=== PATIENT | male | born 1985 | race Hispanic/Latino ===

== ENCOUNTER 2023-01-30 10:57 | Emergency (ER) | payer BC, MEDICAID ==
[~2023-01-30] VITALS: Ht 185.4 cm; Wt 179.2 kg
[2023-01-30 11:26] LABS: APPEARANCE,URINE CLEAR (CLEAR); BILIRUBIN,URINE NEGATIVE (NEGATIVE); COLOR,URINE LIGHT-YELLOW (YELLOW); GLUCOSE, URINE (UA) NEGATIVE (NEGATIVE); KETONES,URINE NEGATIVE (NEGATIVE); LEUKOCYTE ESTERASE ,URINE NEGATIVE Leu/uL (NEGATIVE); NITRATE,URINE NEGATIVE (NEGATIVE); OCCULT BLOOD,URINE NEGATIVE (NEGATIVE); PH,URINE 6.5 (5.0-8.0); PROTEIN,URINE 10 mg/dL (NEGATIVE); UROBILINOGEN,URINE 0.2 mg/dL (0.2-1.0)
[2023-01-30 11:33] LABS: BASOPHILS % (AUTO) 0.8 % (0.0-5.0); EOSINOPHILS % (AUTO) 1.6 % (0.0-8.0); HEMATOCRIT 41.8 % (42-54); LYMPHOCYTES % (AUTO) 24.6 % (21.0-51.0); MEAN CORPUSCULAR HEMOGLOBIN 25.6 pg (27.0-33.0); MEAN CORPUSCULAR HGB CONC 31.8 g/dL (32.0-36.0); MEAN CORPUSCULAR VOLUME 80.4 fL (79-99); MONOCYTES % (AUTO) 6.8 % (3.0-13.0); NEUTROPHILS % (AUTO) 65.8 % (40.0-77.0); PLATELET COUNT (AUTO) 341 K/uL (130-400); RED CELL DISTRIBUTION WIDTH 13.8 % (11.0-15.5)
[2023-01-30 11:50] LABS: CREATININE 0.8 mg/dL (0.5-1.5); POTASSIUM 4.2 mmol/L (3.5-5.1)
[2023-01-30 11:56] LABS: ALBUMIN 3.7 g/dL (3.5-5.0); TOTAL PROTEIN, SERUM 8.3 g/dL (6.0-8.3)
[2023-01-30] MEDS ORDERED: IOHEXOL-350 75 ML VIAL IV ONE (12:20)
[2023-01-30 12:22] LABS: MUCUS,URINE RARE LPF (None Seen); RBC,URINE 0-1 /HPF (0-1); SQUAMOUS EPITHELIAL CELL,UR RARE /HPF (0-2); WBC,URINE 0-1 /HPF (0-1)
[2023-01-30] MEDS ORDERED: LACTATED RINGERS 1000ML 1,000 ML IV ONE (12:30)
[2023-01-30] MEDS ORDERED: ONDANSETRON 4MG INJ IVP ONE (12:30)
[2023-01-30] MEDS ORDERED: MORPHINE 4 MG SYG IVP ONE (12:30)
[2023-01-30] MEDS ORDERED: LIDOCAINE HCL 2% VISCOUS 15 ML UDCUP PO ONE (15:00)
[2023-01-30 15:39] VITALS: BP 162/90; PULSE 74; RESP 18; O2SAT 96
[2023-01-30] MEDS ORDERED: MAG/ALUM/SIMETH 30 ML UDCUP PO ONE (16:00)
[2023-01-30] MEDS ORDERED: PANT40GR PO (16:35)
== END 2023-01-30 16:44 | disposition home or self-care (01) ==
LOC: EDH 10:57
DX: R10.13 Epigastric pain (principal); E11.9 Type 2 diabetes mellitus without complications; E66.9 Obesity, unspecified; I10 Essential (primary) hypertension
CPT/HCPCS: 99285; 74177; 96374; 96361; 96375; 84478; 84484; 80053; 83690; 85025; 81001; 36415; 93005; J7120; J2405; J2270; Q9967

== ENCOUNTER 2023-04-24 03:53 | Emergency (ER) | payer MEDICAID ==
[~2023-04-24] VITALS: Ht 185.4 cm; Wt 176.9 kg
[~2023-04-24 03:53] MED LIST: PANT40GR PO
[2023-04-24] MEDS ORDERED: LACTATED RINGERS 1000ML 1,000 ML IV ONE (04:00)
[2023-04-24] MEDS ORDERED: ONDANSETRON 4MG INJ IVP ONE (04:00)
[2023-04-24 04:30] LABS: BASOPHILS # (AUTO) 0.02 K/uL (0.00-0.20); BASOPHILS % (AUTO) 0.2 % (0.0-5.0); EOSINOPHILS # (AUTO) 0.03 K/uL (0.00-0.70); EOSINOPHILS % (AUTO) 0.4 % (0.0-8.0); HEMATOCRIT 41.6 % (42-54); IMMATURE GRANULOCYTE ABSOLUTE 0.04 K/uL (0-1); LYMPHOCYTES # (AUTO) 0.6 K/uL (1.0-4.8); LYMPHOCYTES % (AUTO) 6.9 % (21.0-51.0); MEAN CORPUSCULAR VOLUME 80.5 fL (79-99); MONOCYTES # (AUTO) 0.6 K/uL (0.1-1.0); NEUTROPHILS # (AUTO) 6.8 K/uL (1.8-7.7); PLATELET COUNT (AUTO) 285 K/uL (130-400); RED BLOOD CELL COUNT(AUTO) 5.17 MIL/uL (4.50-6.20); RED CELL DISTRIBUTION WIDTH 14.1 % (11.0-15.5)
[2023-04-24 04:42] LABS: CREATININE 0.9 mg/dL (0.5-1.5); POTASSIUM 3.8 mmol/L (3.5-5.1)
[2023-04-24 04:44] LABS: SARS-CoV-2, RNA, NAAT NEGATIVE SARS CoV-2 (NEGATIVE)
[2023-04-24 04:45] LABS: INFLUENZA TYPE A Negative For Type A (NEGATIVE); INFLUENZA TYPE B Negative For Type B (NEGATIVE)
[2023-04-24 04:47] LABS: ALBUMIN 3.4 g/dL (3.5-5.0); BILIRUBIN,TOTAL 0.5 mg/dL (0.2-1.0); TOTAL PROTEIN, SERUM 8.1 g/dL (6.0-8.3)
[2023-04-24] MEDS ORDERED: MORPHINE 2 MG SYG IVP ONE (05:00)
[2023-04-24] MEDS ORDERED: DIPHENOXYLATE HCL/ATROPINE 2.5/0.025 MG TAB PO ONE (05:00)
[2023-04-24] MEDS ORDERED: DiphenhydrAMINE HCL 50 MG/ML VIAL ONE (05:31)
[2023-04-24] MEDS ORDERED: SOLU-MEDROL 125MG VIAL ONE (05:32)
[2023-04-24] MEDS ORDERED: IOHEXOL 350 MG/ML 100ML INFUS..BTL IV ONE (05:41)
[2023-04-24] MEDS ORDERED: SOLU-MEDROL 125MG VIAL IVP ONE (06:00)
[2023-04-24] MEDS ORDERED: DiphenhydrAMINE HCL 50 MG/ML VIAL IV ONE (06:00)
[2023-04-24] MEDS ORDERED: DIPH1TAB PO (06:39)
[2023-04-24] MEDS ORDERED: ONDA4TAB10 PO (06:39)
[2023-04-24] MEDS ORDERED: DICY20TA2 PO (06:39)
[2023-04-24 06:49] VITALS: BP 148/76; PULSE 88; RESP 18; O2SAT 98
== END 2023-04-24 07:11 | disposition home or self-care (01) ==
LOC: EDH 03:53
DX: K52.9 Noninfective gastroenteritis and colitis, unspecified (principal); E11.9 Type 2 diabetes mellitus without complications; E66.9 Obesity, unspecified; I10 Essential (primary) hypertension; Z79.899 Other long term (current) drug therapy; Z68.43 Body mass index [BMI] 50.0-59.9, adult; Z20.822 Contact with and (suspected) exposure to COVID-19
CPT/HCPCS: 99285; 74177; 96374; 96375; 76705; 96361; 87635; 80053; 83690; 85025; 87804 ×2; 36415; C9803; J7120; J1200; J2270; J2930; J2405; Q9967

== ENCOUNTER 2024-11-30 11:25 | Emergency (ER) | payer MEDICAID, OTHER ==
[~2024-11-30] VITALS: Ht 185.4 cm; Wt 176.9 kg
[~2024-11-30 11:25] MED LIST changes: +DICY20TA2 PO; +DIPH1TAB PO; +ONDA-243 PO
[2024-11-30 11:55] LABS: RAPID GROUP A STREP negative (NEGATIVE)
[2024-11-30 12:05] LABS: SARS-CoV-2, RNA, NAAT NEGATIVE SARS CoV-2 (NEGATIVE)
[2024-11-30 12:06] LABS: INFLUENZA TYPE A Negative For Type A (NEGATIVE); INFLUENZA TYPE B Negative For Type B (NEGATIVE)
[2024-11-30] MEDS: BENZONATATE 100 MG CAPSULE PO STA (13:27)
--- NOTE | 2024-11-30 13:37 | EKG ---
[facility] Test Date: 2024-11-30 Test Time: 13:33:36 Pat Name: MARSHALL HOOVER Department: ED Room: Gender: M C D Still Operator: 08 : 1985 Requested By: THEA LAMB Order Number: [id number] Reading MD: Manas Morgan Measurements Intervals [place] Rate: 73 P: 45 ME: 176 QRS: 47 QRSD: 96 T: 160 QT: 377 QTc: 416 Interpretive Statements Sinus rhythm Nonspecific T abnormalities, lateral leads Compared to ECG 01/30/2023 14:56:22 No significant changes Electronically Signed On 12-01-2024 17:32:32 CDT by Manas Morgan Please click the below link to view image of tracing.
--- NOTE | 2024-11-30 14:02 | HMCIMG ---
Exam Type: CHEST 1VW Clinical Information: cough Comparison: None Findings: The lungs are clear of infiltrates. The heart is normal in size. The bony and soft tissue structures of the chest are unremarkable. Impression: Clear lungs.
[2024-11-30 14:33] VITALS: BP 131/85; PULSE 80; RESP 18; TEMP 98.6; O2SAT 98
[2024-11-30] MEDS ORDERED: DEXT15LI31 PO (14:39)
[2024-11-30] MEDS ORDERED: KETO10TA2 PO (14:39)
--- NOTE | 2024-11-30 14:40 | ERN ---
ED Note History of Present Illness Stated Complaint: COUGH, CONGESTION Chief Complaint: Cough Time Seen by MD: 11:36 Time Seen by Midlevel: 11:40 Dictation: 39-year-old male coming in with complaints of cough later turned into chest pain when he coughs for three days. Patient states he also has generalized body malaise. Denies having any fever. Allergies: Coded Allergies: No Known Drug Allergies (Unverified Allergy, Unknown, 01/30/23) Uncoded Allergies: SEAFOOD (Allergy, Intermediate, "PUTS ME TO SLEEP", 09/10/13) Home Meds Active Scripts Dextromethorphan HBr (Tussin Cough) 15 Mg/5 Ml Liquid, 15 MG PO DAILY for 5 Days, #100 ML Prov:THEA LAMB [employer] 11/30/24 Ketorolac Tromethamine (Ketorolac Tromethamine) 10 Mg Tablet, 1 TAB PO Q6HPRN PRN for pain for 3 Days, #20 TAB 0 Refills Prov:THEA LAMB NP 11/30/24 Dicyclomine HCl (Bentyl) 20 Mg Tab, 20 MG PO TIDP PRN for PAIN, #30 TAB Prov:MATTY BROWN MD 04/24/23 Diphenoxylate HCl/Atropine (Lomotil Tablet) 2.5 Mg-0.025 Mg Tablet, 2 TAB PO TIDP PRN for DIARRHEA for 5 Days, #10 TAB 0 Refills Prov:MATTY BROWN MD 04/24/23 Ondansetron (Ondansetron Odt) 4 Mg Tab.rapdis, 4 MG PO TIDP PRN for VOMITING, #30 TAB Prov:MATTY BROWN MD 04/24/23 Pantoprazole Sodium (Pantoprazole Sodium) 40 Mg Granpkt.dr, 40 MG PO DAILY, #30 PACK Prov:ADDIE TELLES MD 01/30/23 Past Medical History Past Medical History: Diabetes-Type II, Hypertension Additional Past Medical Hx: OBESITY Surgical History: Other Surgical History Other: KNEE SURGERY Family History: HTN Social History: ETOH Review of System Dictation Constitutional: Negative for fever,chills, and weight loss Eyes: Negative for injury, pain,redness, and discharge ENT: Negative for injury,pain or swelling Cardiovascular: Negative for chest pain, palpitations, and edema Respiratory: Complaining of shortness a breath and cough Abdomen/GI: Negative for abdominal pain, nausea, vomiting, diarrhea, and constipation Back: Negative for injury and pain : Negative for injury, bleeding and discharge MS/Extremity: Negative for injury and deformity Skin: Negative for rash, and discoloration Neuro: Negative for headache, weakness, numbness, tingling, and seizure Psych: Negative for suicide ideation, homicidal ideation, and hallucinations Review of Systems: was completed Initial Vital Sign VS Vital Signs Date Time Temp Pulse Resp B/P (MAP) Pulse Ox O2 Delivery O2 Flow Rate FiO2 11/30/24 11:31 98.6 83 18 137/87 97 Room Air 0 11/30/24 14:33 21 Physical Exam Dictation General: awake, alert, NAD Head/Face: Normocephalic, atraumatic Eyes: PERRL, EOMI, vision at baseline ENT: oral cavity clear, TMs clear, no signs of infection Neck: Trachea midline, supple, no nuchal rigidity Cardiovascular: RRR, normal S1/S2, No MRGs, no JVD Respiratory: CTAB, no respiratory distress, No rales or wheezes Abdomen: Soft, non-tender, non-distended, normal bowel sounds, no guarding or rebound. Skin: Warm, dry, normal turgor, no rash MS/Extremity: Pulses equal, no cyanosis, neurovascular intact, FROM Neuro: COAx4, GCS 15, strength 5/5, CN 2-12 intact, normal cerebellar exam, normal gait, Psych: Normal behavior, mood, and affect normal Results (Laboratory/Radiology) Laboratory/Radiology Laboratory Tests Test 11/30/24 11:39 Influenza Type A Antigen Negative For Type A Influenza Type B Antigen Negative For Type B SARS-CoV-2, RNA, NAAT NEGATIVE SARS CoV-2 Group A Streptococcus Rapid negative (NEGATIVE) Labs Reviewed?: Yes X-RAY Comment: [place] [id number] [id number] IMAGING REPORT Signed PATIENT: MARSHALL HOOVER MR#: [id number] : 1985 SEX: M AGE: 39 LOCATION: [facility] ORDER [id number] STATUS: REG ER REPORT#: [id number] SERVICE 1310 REASON: cough ORDERING PHYSICIAN: THEA LAMB NP PROCEDURE: CXR1VW - CHEST 1VW Exam Type: CHEST 1VW Clinical Information: cough Comparison: None Findings: The lungs are clear of infiltrates. The heart is normal in size. The bony and soft tissue structures of the chest are unremarkable. Impression: Clear lungs. DICTATED BY: SADIQ BURRELL MD DATE: 11/30/24 1400 ELECTRONICALLY SIGNED BY: SADIQ BURRELL MD DATE: 11/30/24 1402 ED Course ED Course Orders Procedure Category Date Status Time Covid Rna Naat LAB 11/30/24 Complete 11:35 Rapid (Group A Strep) LAB 11/30/24 Complete 11:35 Influenza Type A & B, LAB 11/30/24 Complete Rapid 11:35 Chest 1vw RAD 11/30/24 Resulted 13:10 12 Lead Ekg Tracing- EKG 11/30/24 Complete Technical 13:10 Benzonatate 100 Mg PHA 11/30/24 Complete Capsule (Tessalon 100 13:10 Current Medications Medications (Trade) Dose Ordered Sig/Twin Route PRN Reason Start Time Stop Time Status Last Admin Dose Admin Benzonatate (Tessalon 100mg Caps) 200 mg ONCE STAT PO 11/30/24 13:10 11/30/24 13:12 DC 11/30/24 13:27 Vital Signs Date Time Temp Pulse Resp B/P (MAP) Pulse Ox O2 Delivery O2 Flow Rate FiO2 11/30/24 14:33 98.6 80 18 131/85 98 Room Air* 0 21 11/30/24 11:31 98.6 83 18 137/87 97 Room Air 0 Medical Decision Making MDM MDM: 39-year-old male coming in with complaints of cough later turned into chest pain when he coughs for three days. Patient states he also has generalized body malaise. Denies having any fever. Swabs are negative. X-ray does not show any pulmonary edema or pneumonia. EKGs not show any ST elevations or dysrhythmias. Educated patient more than likely this is viral syndrome, URI. Discussed that he is to follow up with PCP in 1-2 days and he can take [id number] for symptomatic control. Discussed patient with a red flag symptoms of when to return back to the ER, patient verbalized understanding, answered all questions. Differential diagnosis: COVID, influenza, strep, viral syndrome, URI, bronchitis Rationale: Tests considered and ordered secondary to shared decision making include: Previous outside records reviewed: Old ER visits. Risk of complication and/or morbidity or mortality of patient management: None Medications-Per medication reconciliation Need for hospitalization: Patient does not meet criteria for hospitalization. Need for emergency major/minor surgery: No There are no social concerns with this patient. Prescription drug management Prescriptions will include symptomatic care Patient's prior external medical records from other ER visits were reviewed by me as indicated. Prior testing and results from previous visits were reviewed. Prior tests were taken into account with medical decision making and resource utilization, independent historian/historians were used to obtain complete medical history. I independently interpreted the test that were performed, results were reviewed by me and considered findings on radiology if ordered. Medical management and examination interpretation discussions were had by me with other qualified healthcare professionals as indicated for the patient's care. DX & DISP Disposition: Discharge Departure Impression: Primary Impression: Viral syndrome Additional Impression: Cough Condition: Stable Scripts Dextromethorphan HBr (Tussin Cough) 15 Mg/5 Ml Liquid 15 MG PO DAILY for 5 Days, #100 ML Prov: THEA LAMB [employer] 11/30/24 Ketorolac Tromethamine (Ketorolac Tromethamine) 10 Mg Tablet 1 TAB PO Q6HPRN PRN for pain for 3 Days, #20 TAB 0 Refills Prov: THEA LAMB [employer] 11/30/24 Additional Instructions: Viral syndrome can last from 7-14 days, take [id number] symptomatic control like Tylenol, Motrin, cough medication, decongestants to control the symptoms. Follow up with your primary doctor in 1-2 days. Referrals: MOY CORNEJO MD (PCP) Time of Disposition: 14:39 I have reviewed the case, and I agree with, Diagnosis and Plan I performed the substantive portion of the visit. I have reviewed and personally made and approve the management plan that is documented in the notes by myself or the KARRI. I acknowledge full responsibility for the patient's management plan. THEA LAMB NP November 30, 2024 14:40 HEIKE MÉNDEZ MD November 30, 2024 18:30
== END 2024-11-30 14:45 | disposition home or self-care (01) ==
LOC: EDH 11:25
DX: B34.9 Viral infection, unspecified (principal); R05.9 Cough, unspecified; E11.9 Type 2 diabetes mellitus without complications; E66.9 Obesity, unspecified; I10 Essential (primary) hypertension; Z79.899 Other long term (current) drug therapy; Z20.822 Contact with and (suspected) exposure to COVID-19
CPT/HCPCS: 71045; 87635; 87804; 87880; 93005; 99285